=== PATIENT | male | born 1975 | race Caucasian/White ===

== ENCOUNTER 2016-05-05 18:47 | Emergency (ER) | payer OTHER ==
[~2016-05-05] VITALS: Ht 167.6 cm; Wt 68.2 kg
[2016-05-05 18:55] VITALS: Ht 167.6 cm; Wt 68.2 kg
[2016-05-05] MEDS ORDERED: SOD CHLORIDE 0.9% 1,000 ML IV STA (18:55)
[2016-05-05] MEDS ORDERED: LORAZEPAM 2 MG INJ IV STA (18:55)
[2016-05-05] MEDS ORDERED: HALOPERIDOL 5 MG INJ IM STA (18:55)
[2016-05-05 19:30] LABS: BASOPHIL # 0.1 10^3/ul (0.0-0.1); BASOPHILS % 0.6 % (0.0-2.0); EOSINOPHILS # 0.3 10^3/ul (0.0-0.5); HEMATOCRIT 44.8 % (42.0-52.0); HEMOGLOBIN 15.6 g/dl (14.0-18.0); LYMPHOCYTES # 3.3 10^3/ul (0.8-2.9); LYMPHOCYTES % 33.7 % (15.0-51.0); MEAN CORPUSCULAR HEMOGLOBIN 33.7 pg (29.0-33.0); MEAN CORPUSCULAR HGB CONC 34.9 g/dl (32.0-37.0); MEAN CORPUSCULAR VOLUME 96.6 fl (82.0-101.0); MEAN PLATELET VOLUME 7.7 fl (7.4-10.4); MONOCYTE # 0.6 10^3/ul (0.3-0.9); MONOCYTES % 5.9 % (0.0-11.0); NEUTROPHIL # 5.5 10^3/ul (1.6-7.5); NEUTROPHILS % 56.8 % (39.0-77.0); PLATELET COUNT 388 10^3/UL (140-440); RED BLOOD COUNT 4.64 10^6/ul (4.70-6.10); RED CELL DISTRIBUTION WIDTH 14.1 % (11.5-14.5); UNCORRECTED WBC 9.6 10^3/ul (4.8-10.8); WHITE BLOOD COUNT 9.6 10^3/ul (4.8-10.8)
[2016-05-05 19:32] LABS: CONDITION 1
[2016-05-05 19:36] LABS: ALBUMIN 4.4 g/dl (3.3-4.9); CHLORIDE 101 mmol/L (97-110)
[2016-05-05 19:37] LABS: POTASSIUM 4.5 mmol/L (3.5-5.1); SODIUM 144 mmol/L (135-144)
[2016-05-05 19:39] LABS: ALBUMIN/GLOBULIN RATIO 0.93; ANION GAP 23 (8-16); ASPARTATE AMINO TRANSFERASE 329 IU/L (15-46); BILIRUBIN,INDIRECT 0.3 mg/dl (0-1.1); BILIRUBIN,TOTAL 0.3 mg/dl (0.2-1.3); CARBON DIOXIDE 25 mmol/L (21-31); CREATININE 0.99 mg/dl (0.61-1.24); TOTAL PROTEIN 9.1 g/dl (6.1-8.1)
[2016-05-05 19:40] LABS: ALANINE AMINOTRANSFERASE 444 IU/L (13-69); ALKALINE PHOSPHATASE 91 IU/L (42-121); BLOOD UREA NITROGEN 13 mg/dl (7-20); CALCIUM 9.6 mg/dl (8.4-10.2); GLUCOSE 90 mg/dl (70-220)
[2016-05-05 19:43] LABS: ACETAMINOPHEN < 10.0 ug/ml (10.0-30.0); SALICYLATE < 1.0 mg/dl (5.0-30.0)
[2016-05-05] MEDS ORDERED: MAGNESIUM SULFATE 2 GM, MULTIVITAMINS 10 ML, THIAMINE 100 MG, FOLIC ACID 1 MG in SOD CH... IV STA (19:51)
--- NOTE | 2016-05-05 20:18 | RADRPT ---
PROCEDURE: CT Brain without contrast. CLINICAL INDICATION: Medical clearance. Headache. TECHNIQUE: A CT of the brain was performed on a multidetector CT scanner utilizing axial sections from the skull base through the vertex without contrast. Images were reviewed on a high-resolution [employer] workstation. Exam CTDI = 44.11 mGy and the DLP = 720.23 mGy-cm. One or more of the following dose reduction techniques were used: Automated exposure control Adjustment of the mA and/or kV according to patient size. Use of iterative reconstruction technique. COMPARISON: None available FINDINGS: Mild diffuse cerebral and cerebellar atrophy is present. There is proportionate dilatation of the v entricular system and sulci in a symmetric fashion. There is prominence of the extraaxial spaces sec ondary to atrophy. There is no evidence of intracranial hemorrhage, mass effect or midline shift. N o abnormal intra-axial or extra-axial fluid collections are seen. The density of the brain is mandy l and the partida/white matter differentiation is well preserved. The osseous structures and visualiz ed paranasal sinuses are unremarkable. IMPRESSION: 1. No intracranial hemorrhage, mass effect or midline shift. 2. Mild generalized volume loss, prominent for the patient's age. RPTAT: HHO .Talisha Mccarthy MD, MD Date Time Electronically viewed and signed by .Talisha Mccarthy MD, on 05/05/2016 20:17 .O/
--- NOTE | 2016-05-05 21:28 | ERD ---
ER Documentation Chief Complaint Date/Time DATE: 05/05/16 TIME: 21:21 Chief Complaint ETOH intoxication,combative HPI This is a 40-year-old male with an unknown past medical history that presents to the emergency department brought in by EMS sepsis the patient was found walking around the street. He stated he was clinically intoxicated and EMS indicated he was very combative. He denies any illicit drug use. He states he does not drink alcohol on a daily basis. EMS indicated there is no signs of trauma or drug paraphernalia. He denies a headache chest pain nausea vomiting or diarrhea. There is no hemoptysis hematemesis or melanotic stools. ROS All systems reviewed and are negative except as per history of present illness. Medications Home Meds Unable to Obtain Active Prescriptions or Reported Meds Allergies Allergies: Coded Allergies: Unknown: Unable to obtain (Unverified , 05/05/16) PMhx/Soc Medical and Surgical Hx: pt denies Medical Hx, pt denies Surgical Hx Hx Alcohol Use: Yes (REFUSE TO STATE LAST DRINK) Hx Substance Use: No (DENIES) Hx Tobacco Use: No (DENIES) Smoking Status: Never smoker Physical Exam Vitals Vital Signs Date Time Temp Pulse Resp B/P Pulse Ox O2 Delivery O2 Flow Rate FiO2 05/05/16 18:55 97.1 78 18 110/68 98 Physical Exam Constitutional:Well-developed. Well-nourished. Drowsy but easily arousable HEENT:Normocephalic. Atraumatic.Pupils were equal round reactive to light. Moist mucous membranes.No tonsillar exudates. No nasoseptal hematoma. No hemotympanum. No midface mobility. Neck: No nuchal rigidity. No lymphadenopathy. No posterior cervical spine tenderness or step-offs. Respiratory: Not using accessory muscles of respiration.Lungs were clear to auscultation bilaterally. No rhonchi. No rales. No wheezing. Cardiovascular: Regular rate regular rhythm.No murmurs. No rubs were appreciated.S1, S2 normal. Distal pulses are palpable 2+ bilaterally. GI: Abdomen was soft. Nontender. Non Distended. No pulsatile abdominal masses or bruits. No rebound. No guarding. Bowel sounds were present and normal. Muscle skeletal: Full range of motion of both the upper and lower extremities bilaterally.Normal muscle tone.No assymetrical calf tenderness or swelling. Skin: No petechia, no purpura. No lesions on the palms or the soles of the feet. No maculopapular rash. NEURO: Patient was alert, awake, orientated x3 with a sternal rub. Gait observed and ataxic. Patient smelled of alcohol. No facial droop or flattening nasolabial fold Result Diagram: 05/05/16191405/05/161914 Results 24 hrs Laboratory Tests Test 05/05/16 19:15 Acetaminophen Level < 10.0ug/ml Alanine Aminotransferase (ALT/SGPT) 444IU/L Albumin 4.4g/dl Albumin/Globulin Ratio 0.93 Alkaline Phosphatase 91IU/L Anion Gap 23 Aspartate Amino Transf (AST/SGOT) 329IU/L Basophils # 0.110^3/ul Basophils % 0.6% Blood Urea Nitrogen 13mg/dl Calcium Level 9.6mg/dl Carbon Dioxide Level 25mmol/L Chloride Level 101mmol/L Creatinine 0.99mg/dl Digoxin Level < 0.4ng/ml Direct Bilirubin 0.00mg/dl Eosinophils # 0.310^3/ul Eosinophils % 3.0% Ethyl Alcohol Level 402.0mg/dl Globulin 4.70g/dl Glucose Level 90mg/dl Hematocrit 44.8% Hemoglobin 15.6g/dl Indirect Bilirubin 0.3mg/dl Lymphocytes # 3.310^3/ul Lymphocytes % 33.7% Mean Corpuscular Hemoglobin 33.7pg Mean Corpuscular Hemoglobin Concent 34.9g/dl Mean Corpuscular Volume 96.6fl Mean Platelet Volume 7.7fl Monocytes # 0.610^3/ul Monocytes % 5.9% Neutrophils # 5.510^3/ul Neutrophils % 56.8% Nucleated Red Blood Cells # 0.010^3/ul Nucleated Red Blood Cells % 0.0/100WBC Platelet Count 55595^3/UL Potassium Level 4.5mmol/L Red Blood Count 4.6410^6/ul Red Cell Distribution Width 14.1% Salicylates Level < 1.0mg/dl Sodium Level 144mmol/L Total Bilirubin 0.3mg/dl Total Protein 9.1g/dl White Blood Count 9.610^3/ul Current Medications Medications (Trade) Dose Ordered Sig/Grant Route PRN Reason Start Time Stop Time Status Last Admin Dose Admin Sodium Chloride (NS) 1,000 ml @ 1,000 mls/hr Q1H STAT IV 05/05/16 18:55 05/05/16 19:54 DC 05/05/16 20:05 Lorazepam (Ativan) 1 mg ONCE STAT IV 05/05/16 18:55 05/05/16 18:58 DC 05/05/16 20:06 Haloperidol 5 mg 5 mg ONCE STAT IM 05/05/16 18:55 05/05/16 18:58 DC 05/05/16 20:06 Magnesium Sulfate/ Multivitamins/ Thiamine HCl/ Folic Acid/Sodium Chloride (Magnesium Sulfate/Mvi Adult/ Vitamin B1/Folic Acid/NS) 1,015.2 ml @ 500 mls/ hr Q2H2M STAT IV 05/05/16 19:51 05/05/16 21:52 05/05/16 20:43 Procedures/MDM This patient presented to the emergency department with acute psychosis the patient became much more combative after initial physical exam and my differential diagnosis included but was not limited to ruling out life threatening causes of acute psychosis such as Wernickes encephalopathy, hypoxia , hypoglycemia, hypertensive encephalopathy, intracerebral hemorrhage, meningitis, poisoning. After my evaluation and workup on the patient I was able to exclude medical and reversible causes of the patients psychosis. It was my clinical impression the patients symptoms were an exacerbation of his being clinically intoxicated; therefore, I did not feel the patient required a hold. He denied any suicidal homicidal thoughts or ideations. The patient did become severely agitated during medical assessment and required Haldol and Ativan. Reassurance and verbal de-escalation were unsuccessful in calming the patient down. The agitation was impeding medical evaluation and treatment, with potential for the patient to harm themselves or others; therefore, pharmacological sedation was required. Observation Note: Time: 7 hours Family Hx: No Hypertension Evaluation: Multiple exams showed improving symptoms and no evidence of impending delirium tremors. The patient received a banana bag while in the emergency department. Also obtained a CT scan of the patient's head which showed no acute intracerebral hemorrhage mass-effect or midline shift Departure Diagnosis: Primary Impression: Alcoholic intoxication Additional Impression: Toxic encephalopathy Condition: Serious KAILASHESTHER TODD May 05, 2016 21:28
[2016-05-05 22:16] LABS: ADD UMIC NO; URINE BILIRUBIN (Dip) NEGATIVE (NEGATIVE); URINE BLOOD (Dip) NEGATIVE (NEGATIVE); URINE COLOR LT. YELLOW (YELLOW); URINE GLUCOSE (Dip) NEGATIVE (NEGATIVE); URINE KETONES (Dip) NEGATIVE (NEGATIVE); URINE LEUKOCYTE ESTERASE (Dip) NEGATIVE (NEGATIVE); URINE NITRITE (Dip) NEGATIVE (NEGATIVE); URINE TOTAL PROTEIN (Dip) NEGATIVE (NEGATIVE); URINE UROBILINOGEN (Dip) 0.2 E.U./dL (0.1-1.0)
[2016-05-05 22:39] LABS: BARBITURATES NEGATIVE (NEGATIVE); BENZODIAZEPINES NEGATIVE (NEGATIVE); CANNABINOIDS NEGATIVE (NEGATIVE); COCAINE NEGATIVE (NEGATIVE); OPIATES NEGATIVE (NEGATIVE)
[2016-05-06 04:00] VITALS: BP 118/76; PULSE 78; RESP 18; TEMP 97.1
== END 2016-05-06 08:30 | disposition home or self-care (01) ==
LOC: E/R 18:47 → EDBD 18:47 → E/R 05-06 08:30
DX: F10.120 Alcohol abuse with intoxication, uncomplicated (principal); G92 Toxic encephalopathy; T51.94XA Toxic effect of unspecified alcohol, undetermined, initial encounter
CPT/HCPCS: 70450; 80053; 80162; 80306; 80307; 81003; 85025; 96372; 96374; 96375; J1630; J2060; J3411; J3475; J7030; Z7502; Z7610

== ENCOUNTER 2017-01-13 11:04 | Emergency (ER) | payer OTHER ==
[~2017-01-13] VITALS: Ht 165.1 cm; Wt 68.5 kg
[2017-01-13 11:05] VITALS: Ht 165.1 cm; Wt 68.5 kg
[2017-01-13] MEDS ORDERED: MAGNESIUM SULFATE 2 GM, MULTIVITAMINS 10 ML, THIAMINE 100 MG, FOLIC ACID 1 MG in SOD CH... IV STA (11:51)
--- NOTE | 2017-01-13 11:56 | ERD ---
ER Documentation Chief Complaint Date/Time DATE: 01/13/17 TIME: 11:53 Chief Complaint Etoh intoxication HPI Patient is a 41-year-old male who presents to the ER with alcohol intoxication and reports that he took 20 tablets of an unknown medication. He states that he is suicidal. He states he has history of bipolar disorder. He denies other drug use. History is significantly limited due to patient's heavy intoxication. The patient gives inconsistent history regarding other ingestion. Patient denies fall or trauma. ROS All systems reviewed and are negative except as per history of present illness. Medications Home Meds Unable to Obtain Active Prescriptions or Reported Meds Allergies Allergies: Coded Allergies: No Known Allergy (Unverified , 01/13/17) PMhx/Soc Past medical history: Bipolar disorder Past surgical history: Unknown neck surgery Social history: Patient drinks alcohol, denies tobacco or illicit drug Medical and Surgical Hx: pt denies Medical Hx, pt denies Surgical Hx Hx Alcohol Use: Yes (etoh at this time) Hx Substance Use: No Hx Tobacco Use: No Smoking Status: Current every day smoker FmHx Cannot obtain Physical Exam Vitals Vital Signs Date Time Temp Pulse Resp B/P Pulse Ox O2 Delivery O2 Flow Rate FiO2 01/13/17 11:05 97.2 103 20 144/100 98 Physical Exam Const: Lethargic, heavy odor of alcohol Head: Atraumatic Eyes: Normal Conjunctiva ENT: Normal External Ears, Nose and Mouth. Neck: Full range of motion..~ No meningismus. No midline tenderness Resp: Clear to auscultation bilaterally, No wheezes, no rales Cardio: Regular rate and rhythm, no murmurs Abd: Soft, non tender, non distended. Skin: No petechiae or rashes Back: No midline or flank tenderness Ext: No cyanosis, or edema Neur: Awake and alert, Moves 4 extremities appropriately, no facial droop. Psych: Depressed affect, evaluation limited by intoxication Result Diagram: 01/13/17 1200 01/13/17 1200 Results 24 hrs Laboratory Tests Test 01/13/17 12:00 01/13/17 12:40 White Blood Count 4.710^3/ul Red Blood Count 4.0710^6/ul Hemoglobin 13.9g/dl Hematocrit 39.0% Mean Corpuscular Volume 95.8fl Mean Corpuscular Hemoglobin 34.2pg Mean Corpuscular Hemoglobin Concent 35.6g/dl Red Cell Distribution Width 14.2% Platelet Count 5110^3/UL Mean Platelet Volume 8.7fl Neutrophils % % Segmented Neutrophils % (Manual) 56% Band Neutrophils % (Manual) 5% Lymphocytes % % Lymphocytes % (Manual) 26% Monocytes % % Monocytes % (Manual) 10% Eosinophils % % Eosinophils % (Manual) 1% Basophils % % Basophils % (Manual) 2% Nucleated Red Blood Cells % 0.0/100WBC Neutrophils # 10^3/ul Neutrophils # (Manual) 2.610^3/ul Band Neutrophils # 0.210^3/ul Absolute Lymphocytes (Manual) 1.210^3/ul Lymphocytes # 10^3/ul Monocytes # 10^3/ul Absolute Monocytes (Manual) 0.410^3/ul Eosinophils # 10^3/ul Basophils # 10^3/ul Basophils # (Manual) 0.010^3/ul Nucleated Red Blood Cells # 10^3/ul Platelet Estimate DECREASED Hypochromasia 1+ Poikilocytosis 1+ Anisocytosis 1+ Macrocytosis 1+ Prothrombin Time 13.9Sec Prothrombin Time Ratio 1.1 INR International Normalized Ratio 1.07 Sodium Level 145mmol/L Potassium Level 3.6mmol/L Chloride Level 106mmol/L Carbon Dioxide Level 25mmol/L Anion Gap 18 Blood Urea Nitrogen 6mg/dl Creatinine 0.72mg/dl Glucose Level 112mg/dl Calcium Level 8.1mg/dl Total Bilirubin 0.6mg/dl Direct Bilirubin 0.00mg/dl Indirect Bilirubin 0.6mg/dl Aspartate Amino Transf (AST/SGOT) 223IU/L Alanine Aminotransferase (ALT/SGPT) 83IU/L Alkaline Phosphatase 91IU/L Total Protein 8.2g/dl Albumin 4.1g/dl Globulin 4.10g/dl Albumin/Globulin Ratio 1.00 Salicylates Level < 1.0mg/dl Acetaminophen Level < 10.0ug/ml Ethyl Alcohol Level 476.0mg/dl Urine Color STRAW Urine Clarity CLEAR Urine pH 6.0 Urine Specific [place] 1.003 Urine Ketones NEGATIVEmg/dL Urine Nitrite NEGATIVEmg/dL Urine Bilirubin NEGATIVEmg/dL Urine Urobilinogen 1+mg/dL Urine Leukocyte Esterase NEGATIVELeu/ul Urine Microscopic RBC 0/HPF Urine Microscopic WBC 0/HPF Urine Hemoglobin 1+mg/dL Urine Glucose NEGATIVEmg/dL Urine Total Protein NEGATIVEmg/dl Urine Opiates Screen Negative Urine Barbiturates Negative Urine Amphetamines Screen Negative Urine Benzodiazepines Screen Negative Urine Cocaine Screen Negative Urine Cannabinoids Negative Current Medications Medications (Trade) Dose Ordered Sig/Grant Route PRN Reason Start Time Stop Time Status Last Admin Dose Admin Magnesium Sulfate/ Multivitamins/ Thiamine HCl/ Folic Acid/Sodium Chloride (Magnesium Sulfate/Mvi Adult/ Vitamin B1/Folic Acid/NS) 1,015.2 ml @ 500 mls/ hr Q2H2M STAT IV 01/13/17 11:51 01/13/17 13:52 DC 01/13/17 11:51 Procedures/MDM EKG read by me: Time 1159, rate 80 Rhythm: Normal sinus [place]: Normal Intervals: Normal ST-T waves: no ischemic changes Ectopy: No Q-waves: No Impression: No evidence of ischemia or arrhythmia MDM: Patient is a 41-year-old male who presents with alcohol intoxication reporting suicidality. The patient is not able to give a consistent history due to heavy intoxication. He reported that inconsistently that he took 20 pills, but his mother states that he is not on any medication, and other tox screen is negative. He does not present with any toxidrome. Medical workup is otherwise unremarkable, except for mild alcoholic hepatitis and heavy alcohol intoxication, as well as thrombocytopenia. He was evaluated by Dr. Evans, who felt that the patient was not adequately communicative and too intoxicated to be fully evaluated. The patient will be observed in the ER with sitter until clinically sober and reevaluated by psychiatry. Patient's mother states that the patient has history of suicidality without prior attempt. She states that he drinks daily. Patient was signed out to Dr. Breen. Departure Diagnosis: Primary Impression: Alcoholic intoxication Complication of substance-induced condition: uncomplicated Qualified Code: F10.920 - Alcoholic intoxication without complication Additional Impressions: Suicidal ideation Bipolar disorder Active/Remission status: remission status unspecified Qualified Code: F31.9 - Bipolar affective disorder, remission status unspecified Condition: HUNG Batista MD Jan 13, 2017 11:56
[2017-01-13 12:22] LABS: ABNORMAL IP MESSAGE 1; HEMOGLOBIN 13.9 g/dl (14.0-18.0); MEAN CORPUSCULAR HEMOGLOBIN 34.2 pg (29.0-33.0); MEAN CORPUSCULAR HGB CONC 35.6 g/dl (32.0-37.0); MEAN CORPUSCULAR VOLUME 95.8 fl (82.0-101.0); MEAN PLATELET VOLUME 8.7 fl (7.4-10.4); PLATELET COUNT 51 10^3/UL (140-415); POSITIVE DIFF @See below; RED BLOOD COUNT 4.07 10^6/ul (4.70-6.10); RED CELL DISTRIBUTION WIDTH 14.2 % (11.5-14.5); WHITE BLOOD COUNT 4.7 10^3/ul (4.8-10.8)
[2017-01-13 12:41] LABS: ACETAMINOPHEN < 10.0 ug/ml (10.0-30.0); ALANINE AMINOTRANSFERASE 83 IU/L (13-69); ALBUMIN 4.1 g/dl (3.3-4.9); ALKALINE PHOSPHATASE 91 IU/L (42-121); ANION GAP 18 (8-16); ASPARTATE AMINO TRANSFERASE 223 IU/L (15-46); BILIRUBIN,INDIRECT 0.6 mg/dl (0-1.1); BILIRUBIN,TOTAL 0.6 mg/dl (0.2-1.3); BLOOD UREA NITROGEN 6 mg/dl (7-20); CALCIUM 8.1 mg/dl (8.4-10.2); CARBON DIOXIDE 25 mmol/L (21-31); CHLORIDE 106 mmol/L (97-110); CREATININE 0.72 mg/dl (0.61-1.24); GLUCOSE 112 mg/dl (70-220); POTASSIUM 3.6 mmol/L (3.5-5.1); SALICYLATE < 1.0 mg/dl (5.0-30.0); SODIUM 145 mmol/L (135-144); TOTAL PROTEIN 8.2 g/dl (6.1-8.1)
[2017-01-13 12:43] LABS: INR 1.07; PROTIME 13.9 Sec (12.2-14.2); PT RATIO 1.1
[2017-01-13 12:59] LABS: ADD UMIC YES; UR ASCORBIC ACID NEGATIVE (NEGATIVE); UR BILIRUBIN (Dip) NEGATIVE (NEGATIVE); UR BLOOD (Dip) 1+ mg/dL (NEGATIVE); UR CLARITY CLEAR (CLEAR); UR COLOR STRAW (YELLOW); UR GLUCOSE (Dip) NEGATIVE (NEGATIVE); UR KETONES (Dip) NEGATIVE (NEGATIVE); UR LEUKOCYTE ESTERASE (Dip) NEGATIVE Leu/ul (NEGATIVE); UR NITRITE (Dip) NEGATIVE (NEGATIVE); UR RBC 0 /HPF (0-5); UR SPECIFIC GRAVITY (Dip) 1.003 (1.003-1.030); UR TOTAL PROTEIN (Dip) NEGATIVE (NEGATIVE); UR UROBILINOGEN (Dip) 1+ mg/dL (NEGATIVE)
[2017-01-13 13:02] LABS: ANISOCYTOSIS 1+ (0-0); BASOPHILS % (M) 2 % (0-2); EOSINOPHILS % (M) 1 % (0-7); HYPOCHROMASIA 1+ (0-0); MONOCYTES % (M) 10 % (0-11); PLATELET ESTIMATE DECREASED; POIKILOCYTOSIS 1+ (0-0)
[2017-01-13 13:18] LABS: BARBITURATES Negative (NEGATIVE); BENZODIAZEPINES Negative (NEGATIVE); CANNABINOIDS Negative (NEGATIVE); COCAINE Negative (NEGATIVE); OPIATES Negative (NEGATIVE)
--- NOTE | 2017-01-13 15:59 | PSY ---
Date/Time of Note Date/Time of Note DATE: 01/13/17 TIME: 18:51 Psychiatric Subjective Eval Consent Pt consented to telemedicine: Yes Subjective Evaluation Patient location: emergency Chief Complaint: Etoh intoxication History of present illness HPI: The patient is a 41 yo male with unclear hx, came in intoxicated with very high etoh level, reported SI (4 hours ago) as well as vague report of "20 pills " as per other MDs note. This MD was asked to see pt. Pt was still intoxicated, very minimizing, evasive, vague, said "I am not crazy," said he drank too much, denies any si or any attempt to kill self though MD had to ask questions numerous times to obtain info and pt often gave conflictin ginfo. Denies psychosis. Past Psych Hx: pt denies any psych hx PMhx: denies Meds :denies all: denies MSE: intoxicated, slurred speech, slow to respond, evasive, minimizing, disorganized, MD has to ask questions numerous times and obtain conflicting info , poor reliability/insight/judgment Imp: 41 yo male markedy intoxicated, reported SI and unclear about suicide attempt, -given potential SI and acute risk to self, though also very conflicting info and poor reliability as pt intoxicated, 5150 in ED for now and reassess -utox etoh w/d precautions daily thiamine 100mg po folate 1mg po mvi for moderate agitation zyprexa 5mg po prn for severe agitation haldol 5mg im ativan 2mg im cogentin1 mgim prn -d/w attending Medical history Problems Medical Problems: (1) Alcoholic intoxication Status: Acute (2) Toxic encephalopathy Status: Acute Allergies: Coded Allergies: No Known Allergy (Unverified , 01/13/17) Psychiatric Objective Eval Mental Status Examination: Laboratory Results Laboratory Tests Test 01/13/17 12:00 01/13/17 12:40 White Blood Count 4.710^3/ul Red Blood Count 4.0710^6/ul Hemoglobin 13.9g/dl Hematocrit 39.0% Mean Corpuscular Volume 95.8fl Mean Corpuscular Hemoglobin 34.2pg Mean Corpuscular Hemoglobin Concent 35.6g/dl Red Cell Distribution Width 14.2% Platelet Count 5110^3/UL Mean Platelet Volume 8.7fl Neutrophils % % Segmented Neutrophils % (Manual) 56% Band Neutrophils % (Manual) 5% Lymphocytes % % Lymphocytes % (Manual) 26% Monocytes % % Monocytes % (Manual) 10% Eosinophils % % Eosinophils % (Manual) 1% Basophils % % Basophils % (Manual) 2% Nucleated Red Blood Cells % 0.0/100WBC Neutrophils # 10^3/ul Neutrophils # (Manual) 2.610^3/ul Band Neutrophils # 0.210^3/ul Absolute Lymphocytes (Manual) 1.210^3/ul Lymphocytes # 10^3/ul Monocytes # 10^3/ul Absolute Monocytes (Manual) 0.410^3/ul Eosinophils # 10^3/ul Basophils # 10^3/ul Basophils # (Manual) 0.010^3/ul Nucleated Red Blood Cells # 10^3/ul Platelet Estimate DECREASED Hypochromasia 1+ Poikilocytosis 1+ Anisocytosis 1+ Macrocytosis 1+ Prothrombin Time 13.9Sec Prothrombin Time Ratio 1.1 INR International Normalized Ratio 1.07 Sodium Level 145mmol/L Potassium Level 3.6mmol/L Chloride Level 106mmol/L Carbon Dioxide Level 25mmol/L Anion Gap 18 Blood Urea Nitrogen 6mg/dl Creatinine 0.72mg/dl Glucose Level 112mg/dl Calcium Level 8.1mg/dl Total Bilirubin 0.6mg/dl Direct Bilirubin 0.00mg/dl Indirect Bilirubin 0.6mg/dl Aspartate Amino Transf (AST/SGOT) 223IU/L Alanine Aminotransferase (ALT/SGPT) 83IU/L Alkaline Phosphatase 91IU/L Total Protein 8.2g/dl Albumin 4.1g/dl Globulin 4.10g/dl Albumin/Globulin Ratio 1.00 Salicylates Level < 1.0mg/dl Acetaminophen Level < 10.0ug/ml Ethyl Alcohol Level 476.0mg/dl Urine Color STRAW Urine Clarity CLEAR Urine pH 6.0 Urine Specific [place] 1.003 Urine Ketones NEGATIVEmg/dL Urine Nitrite NEGATIVEmg/dL Urine Bilirubin NEGATIVEmg/dL Urine Urobilinogen 1+mg/dL Urine Leukocyte Esterase NEGATIVELeu/ul Urine Microscopic RBC 0/HPF Urine Microscopic WBC 0/HPF Urine Hemoglobin 1+mg/dL Urine Glucose NEGATIVEmg/dL Urine Total Protein NEGATIVEmg/dl Urine Opiates Screen Negative Urine Barbiturates Negative Urine Amphetamines Screen Negative Urine Benzodiazepines Screen Negative Urine Cocaine Screen Negative Urine Cannabinoids Negative HORACE FLORES Jan 13, 2017 15:59
[2017-01-13 17:22] VITALS: BP 132/71; PULSE 71; RESP 18
== END 2017-01-13 17:24 | disposition home or self-care (01) ==
LOC: E/R 11:04
DX: F10.920 Alcohol use, unspecified with intoxication, uncomplicated (principal); F31.9 Bipolar disorder, unspecified; R45.851 Suicidal ideations; F17.210 Nicotine dependence, cigarettes, uncomplicated; R40.2142 Coma scale, eyes open, spontaneous, at arrival to emergency department; R40.2362 Coma scale, best motor response, obeys commands, at arrival to emergency department; R06.02 Shortness of breath
CPT/HCPCS: 36415; 80053; 80306; 80307; 81001; 85025; 85610; 93005; 96374; J3411; J3475; J7030; Z7502; Z7610

== ENCOUNTER 2017-02-07 20:29 | Emergency (ER) | payer SELFPAY ==
[~2017-02-07] VITALS: Ht 162.6 cm; Wt 66.7 kg
[2017-02-07 20:34] VITALS: Ht 162.6 cm; Wt 66.7 kg
== END 2017-02-07 21:24 | disposition left against medical advice (07) ==
LOC: E/R 20:29
DX: Z53.21 Procedure and treatment not carried out due to patient leaving prior to being seen by health care provider (principal)